=== PATIENT | male | born 1995 | race Caucasian/White ===

== ENCOUNTER 2017-08-06 13:50 | Emergency (ER) | payer OTHER ==
[~2017-08-06] VITALS: Ht 175.3 cm; Wt 77.1 kg
[~2017-08-06 13:50] MED LIST: BACTRIM DS 8001 TA1 PO; DIPHENHYDRAMINE25 M8 PO
--- NOTE | 2017-08-06 13:50 | NUR ---
Patient was BIBA and taken to [facility].
[2017-08-06 13:52] VITALS: BP 194/70
--- NOTE | 2017-08-06 13:58 | NUR ---
Dr. Epstein evaluating patient.
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
[2017-08-06] MEDS ORDERED: KETOROLAC 60 MG/2 ML VIAL IM ONE (14:05)
--- NOTE | 2017-08-06 14:05 | NUR ---
PT TAKEN TO XRAY VIA W/C BY TECH.
--- NOTE | 2017-08-06 14:08 | NUR ---
Patient back from XRAY via wheelchair per tech to [facility].
--- NOTE | 2017-08-06 15:00 | NUR ---
ORANGE SURVEY GIVEN TO PATIENT.
--- NOTE | 2017-08-06 15:19 | NUR ---
Patient discharged with v/s stable. Written and verbal after care instructions given and explained. Patient alert, oriented and verbalized understanding of instructions. Ambulatory with steady gait. All questions addressed prior to discharge. ID band removed. Patient advised to follow up with PMD. Rx of MOTRIN AND MUSCLE RELAXANT. given. Patient educated on indication of medication including possible reaction and side effects. Opportunity to ask questions provided and answered.
[2017-08-06 15:21] VITALS: BP 149/60
== END 2017-08-06 15:19 | disposition home or self-care (01) ==
LOC: MED 13:50
DX: S43.401A Unspecified sprain of right shoulder joint, initial encounter (principal); J45.909 Unspecified asthma, uncomplicated; Z88.1 Allergy status to other antibiotic agents; V43.52XA Car driver injured in collision with other type car in traffic accident, initial encounter; Y93.I9 Activity, other involving external motion; Y92.488 Other paved roadways as the place of occurrence of the external cause; Y99.8 Other external cause status
CPT/HCPCS: 73030; 96372; 99284; J1885

== ENCOUNTER 2020-01-07 22:32 | Emergency (ER) | payer OTHER ==
[~2020-01-07] VITALS: Ht 177.8 cm; Wt 88.5 kg
[~2020-01-07 22:32] MED LIST changes: -BACTRIM DS 8001 TA1 PO; +DIPH-722 PO; -DIPHENHYDRAMINE25 M8 PO; +SULF-59 PO
[2020-01-07 22:40] VITALS: BP 114/69
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
--- NOTE | 2020-01-07 23:10 | NUR ---
Dr. Trejo examining patient.
[2020-01-07 23:22] VITALS: BP 114/69
--- NOTE | 2020-01-07 23:23 | NUR ---
Patient discharged with v/s stable. Written and verbal after care instructions given and explained. Patient alert, oriented and verbalized understanding of instructions. Ambulatory with steady gait. All questions addressed prior to discharge. ID band removed. Patient advised to follow up with PMD. Rx of TRAMADOL, MOTRIN AND ROBAXIN given. Patient educated on indication of medication including possible reaction and side effects. Opportunity to ask questions provided and answered.
== END 2020-01-07 23:23 | disposition home or self-care (01) ==
LOC: MED 22:32
DX: S46.912A Strain of unspecified muscle, fascia and tendon at shoulder and upper arm level, left arm, initial encounter (principal); S16.1XXA Strain of muscle, fascia and tendon at neck level, initial encounter; J45.909 Unspecified asthma, uncomplicated; Z79.899 Other long term (current) drug therapy; Z88.1 Allergy status to other antibiotic agents; V49.49XA Driver injured in collision with other motor vehicles in traffic accident, initial encounter; Y93.89 Activity, other specified; Y92.89 Other specified places as the place of occurrence of the external cause; Y99.8 Other external cause status
CPT/HCPCS: 99283

== ENCOUNTER 2020-07-27 01:05 | Emergency (ER) | payer SELFPAY ==
[~2020-07-27] VITALS: Ht 175.3 cm; Wt 103.9 kg
[2020-07-27 01:09] VITALS: BP 140/74
--- NOTE | 2020-07-27 01:12 | NUR ---
ambulated to bed 4 with steady gait.
--- NOTE | 2020-07-27 01:21 | NUR ---
24 year old male coming in for c/o mid epigastric pain secondary to heartburn x 4 days. states feeling of acidity in throat everytime pt is eating.+ nausea. denies any other s/sx. denies any injury or trauma. connected to cardiac monitoring and pulse oximetry monitoring. pmhx: denies allx to pcn and keflex.
[2020-07-27] MEDS: LIDOCAINE VISCOUS 2% 20 ML UDC PO ONE (02:28)
[2020-07-27] MEDS: DICYCLOMINE HCL LIQUID 10 MG/5 ML UDC PO ONE (02:28)
[2020-07-27] MEDS: ALUMINUM HYD/MAG/SIMETHICONE 30 ML UDC PO ONE (02:28)
--- NOTE | 2020-07-27 02:28 | NUR ---
MEDICATED ORDERED. WILL FOLLOW UP
--- NOTE | 2020-07-27 02:46 | NUR ---
TONY. PT STATES HE NO LONGER HAS HEARTBURN OR PAIN AT THIS TIME.
--- NOTE | 2020-07-27 02:54 | NUR ---
dr stern at bedside evaluating pt
--- NOTE | 2020-07-27 03:09 | NUR ---
Patient discharged with v/s stable. Written and verbal after care instructions given and explained. Patient alert, oriented and verbalized understanding of instructions. Ambulatory with steady gait. All questions addressed prior to discharge. ID band removed. Patient advised to follow up with PMD. Rx of PROTONIX, MALOXX given. Patient educated on indication of medication including possible reaction and side effects. Opportunity to ask questions provided and answered.
[2020-07-27 03:10] VITALS: BP 132/63
== END 2020-07-27 03:09 | disposition home or self-care (01) ==
LOC: MED 01:05
DX: K21.9 Gastro-esophageal reflux disease without esophagitis (principal); R03.0 Elevated blood-pressure reading, without diagnosis of hypertension; Z88.0 Allergy status to penicillin; Z88.1 Allergy status to other antibiotic agents; Z79.899 Other long term (current) drug therapy
CPT/HCPCS: 99283

== ENCOUNTER 2020-09-09 04:44 | Emergency (ER) | payer SELFPAY ==
[~2020-09-09] VITALS: Ht 175.3 cm; Wt 88.5 kg
[2020-09-09 04:55] VITALS: BP 148/75
[2020-09-09 05:00] VITALS: BP 148/75
--- NOTE | 2020-09-09 05:01 | NUR ---
PATIENT AMBULATED TO BED 4
--- NOTE | 2020-09-09 05:05 | NUR ---
24 Y/O M, CAME IN TO ER WITH C/O PAIN AT CYST ON HIS BACK, 05/11. PT REPORTS NOTICING THE CYST 1 WEEK AGO BUT STARTED TO CAUSE PAIN LAST NIGHT. DENIES ANY RECENT TRAUMA/INJURY. CYST IS ROUND, TENDER TO TOUCH, AND SLIGHTLY RED. SIDE RAIL UPx1, BED LOCKED AND IN LOWEST POSITION. ALLERGIES: PCN, KEFLEX, SEASONAL ALLERGIES PAST MED HX: NONE
--- NOTE | 2020-09-09 05:06 | NUR ---
ERMD AT BEDSIDE.
[2020-09-09] MEDS ORDERED: LIDOCAINE 2% 1000 MG/50 ML VIAL INJ ONE ×2 (05:16→06:00)
[2020-09-09] MEDS ORDERED: SULFAMETH/TRIMETH DS 800/160MG 1 TAB PO ONE (05:55)
[2020-09-09] MEDS ORDERED: IBUPROFEN 800 MG TAB PO ONE (06:00)
--- NOTE | 2020-09-09 06:00 | NUR ---
ER MD AND RN AT BEDSIDE, I&D PERFORMED WITH ULTRASOUND GUIDANCE, PHOTOS TAKEN. LIDOCAINE PROVIDED BEFORE EXAM. PT TOLERATED WELL. SAFETY MEASURES IN PLACE THROUGHOUT PROCEDURE.
--- NOTE | 2020-09-09 06:30 | NUR ---
EMT CLEANED WOUND AND DRESSED WITH ISLAND DRESSING. PROVIDED MORE SUPPLIES FOR PATIENT FOR EXCESS SOILING. PT VERBALIZED UNDERSTANDING OF TEACHING. RN AT BEDSIDE.
--- NOTE | 2020-09-09 07:00 | NUR ---
Patient discharged with v/s stable. Written and verbal after care instructions given and explained. Patient alert, oriented and verbalized understanding of instructions. Ambulatory with steady gait. All questions addressed prior to discharge. ID band removed. Patient advised to follow up with PMD. Rx of MOTRIN AND BACTRIM given. Patient educated on indication of medication including possible reaction and side effects. Opportunity to ask questions provided and answered. PATIENT PROVIDED EXTRA DRESSINGS, IN STABLE CONDITION.
== END 2020-09-09 07:00 | disposition home or self-care (01) ==
LOC: MED 04:44
DX: L02.212 Cutaneous abscess of back [any part, except buttock and flank] (principal); Z88.0 Allergy status to penicillin; Z88.1 Allergy status to other antibiotic agents; Z79.899 Other long term (current) drug therapy
CPT/HCPCS: 10060; 99284; J2001

== ENCOUNTER 2021-11-16 00:10 | Emergency (ER) | payer BC ==
[~2021-11-16] VITALS: Ht 180.3 cm; Wt 112.5 kg
[2021-11-16 00:17] VITALS: BP_SYST 127; BP_SYST 178; BP_DIAS 87; BP_DIAS 94
[2021-11-16 00:20] VITALS: BP 127/87
--- NOTE | 2021-11-16 00:24 | NUR ---
PT TO LOBBY TO A/W EVALUATION
--- NOTE | 2021-11-16 02:06 | NUR ---
PT EVALUATED BY DR. KHALIL IN TRIAGE.
[2021-11-16] MEDS ORDERED: CLINDAMYCIN 150 MG CAP PO ONE (02:15)
[2021-11-16] MEDS ORDERED: BACI1PAC6 TP (02:20)
[2021-11-16] MEDS ORDERED: CLIN300C2 PO (02:20)
--- NOTE | 2021-11-16 02:46 | NUR ---
Patient discharged with v/s stable. Written and verbal after care instructions given and explained. Patient alert, oriented and verbalized understanding of instructions. Ambulatory with steady gait. All questions addressed prior to discharge. ID band removed. Patient advised to follow up with PMD. Rx of CLINDAMYCIN AND BACITRACIN given. Patient educated on indication of medication including possible reaction and side effects. Opportunity to ask questions provided and answered.
[2021-11-16] MEDS ORDERED: PRED20TA5 PO (10:57)
[2021-11-16] MEDS ORDERED: DIPH25TA53 PO (10:57)
[2021-11-16] MEDS ORDERED: SULF-59 PO (10:57)
== END 2021-11-16 02:46 | disposition home or self-care (01) ==
LOC: MED 00:10
DX: L03.114 Cellulitis of left upper limb (principal); Z88.0 Allergy status to penicillin; Z88.1 Allergy status to other antibiotic agents; Z79.899 Other long term (current) drug therapy
CPT/HCPCS: 90471; 90715; 99283

== ENCOUNTER 2021-11-16 09:51 | Emergency (ER) | payer BC ==
[~2021-11-16] VITALS: Ht 180.3 cm; Wt 109.8 kg
[~2021-11-16 09:51] MED LIST changes: +BACI1PAC6 TP; +CLIN300C2 PO
[2021-11-16 10:44] VITALS: BP 144/79
[2021-11-16] MEDS ORDERED: predniSONE 20 MG TAB PO ONE (10:55)
[2021-11-16] MEDS ORDERED: DIPH25TA53 PO (10:57)
[2021-11-16] MEDS ORDERED: PRED20TA5 PO (10:57)
[2021-11-16] MEDS ORDERED: SULF-59 PO (10:57)
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
[2021-11-16 11:58] VITALS: BP 144/79
--- NOTE | 2021-11-16 11:59 | NUR ---
Patient discharged with v/s stable. Written and verbal after care instructions ABOUT ALLERGIES given and explained. Patient alert, oriented and verbalized understanding of instructions. Ambulatory with steady gait. All questions addressed prior to discharge. ID band removed. Patient advised to follow up with PMD. Rx of BENADRYL, DELTASONE AND BACTRIM given. Patient educated on indication of medication including possible reaction and side effects. Opportunity to ask questions provided and answered.
== END 2021-11-16 11:59 | disposition home or self-care (01) ==
LOC: MED 09:51
DX: T78.40XA Allergy, unspecified, initial encounter (principal); L03.114 Cellulitis of left upper limb; Z88.0 Allergy status to penicillin; Z88.1 Allergy status to other antibiotic agents
CPT/HCPCS: 99283; J7512; Q0163